=== PATIENT | male | born 1980 | race Caucasian/White ===

== ENCOUNTER 2019-05-31 10:33 | Emergency (ER) | payer BC, OTHER ==
[~2019-05-31 10:33] MED LIST: Iopamidol 370 76% 100 ML VIAL ONE
[2019-05-31 11:16] LABS: #Basophils 0.1 thou/uL (0.0-0.2); #Eosinphils 0.3 thou/uL (0.0-0.7); #Lymphocytes 1.4 thou/uL (1.20-3.40); #Monocytes 0.7 thou/uL (0.11-0.59); #Neutrophils 4.3 thou/uL (1.40-6.50); %Basophils 0.8 % (0.0-1.0); %Eosinophils 5.1 % (0.0-10.0); %Lymphocytes 20.8 % (21.0-51.0); %Monocytes 10.2 % (0.0-10.0); %Neutrophils 63.2 % (42.0-75.0); Hemoglobin 14.5 g/dL (14.0-18.0); Mean Corpuscular HGB CONC 32.5 g/dL (32.0-36.0); Mean Corpuscular Hemoglobin 31.7 pg (27.0-31.0); Mean Corpuscular Volume 97.6 fL (78.0-98.0); Mean Platelet Volume 8.1 fL (7.4-10.4); Platelet Count 184 thou/uL (130-400); RBC Distribution Width 11.8 % (11.5-14.5); Red Blood Cell (RBC) Count 4.57 mill/uL (4.70-6.10); White Blood Cell (WBC) Count 6.8 thou/uL (4.8-10.8)
[2019-05-31 11:41] LABS: ALT (SGPT) 22 U/L (8-55); AST (SGOT) 17 U/L (5-34); Albumin 4.4 g/dL (3.5-5.0); Alkaline Phosphatase 77 U/L (40-110); Anion Gap 14 mmol/L (10-20); BUN (Urea Nitrogen) 18 mg/dL (8.9-20.6); Bilirubin, Total 0.4 mg/dL (0.2-1.2); CK (CPK) 101 U/L (30-200); Calc. Creatinine Clearance 0 mL/min (70-130); Calcium 9.6 mg/dL (7.8-10.44); Carbon Dioxide 25 mmol/L (22-29); Chloride 105 mmol/L (98-107); Estimated GFR-MDRD 77; Globulin 2.8 g/dL (2.4-3.5); Glucose 106 mg/dL (70-105); Lipase 15 U/L (8-78); Potassium 4.9 mmol/L (3.5-5.1); Protein, Total 7.2 g/dL (6.0-8.3); Sodium 139 mmol/L (136-145)
[2019-05-31 11:49] LABS: Bacteria/HPF None Seen HPF (None Seen); Bilirubin Negative (Negative); Blood, Urine 1+ (Negative); Clarity Turbid (Clear); Glucose, Urine (Dipstick) Normal (Negative); Leukocyte 250 Leu/uL (Negative); Nitrite Negative (Negative); Protein, Urine (Dipstick) 30 mg/dL (Neg-Trace); RBC/HPF Greater than 50 HPF (0-3); Squamous Epithelial None Seen HPF (0-3); Urobilinogen Normal mg/dL (Less than 2); WBC/HPF 21-50 HPF (0-3)
--- NOTE | 2019-05-31 11:55 | RAD ---
CHEST 1 VIEW: Date: 05/31/2019 HISTORY: Near syncope. FINDINGS: Left ICD. Heart size normal. Lungs clear. No confluent pneumonia, overt edema, or pleural effusion. IMPRESSION: No significant acute intrathoracic disease. Left ICD. POS: RRE
--- NOTE | 2019-05-31 13:11 | CT ---
CT ABDOMEN AND PELVIS WITH IV CONTRAST 05/31/2019 CLINICAL INFORMATION: Nausea and vomiting with abdominal pain which radiates to the patient's back. COMPARISON: 03/09/2016 Technique: Multiple contiguous axial CT images are obtained through the abdomen and pelvis with IV contrast. Cor onal reformatted images are provided. FINDINGS: Lower Chest: Single left ventricular AICD lead is partially visualized. Minimal bibasilar atelectasis is present. Vessels: Abdominal aorta is normal in caliber without evidence of an aortic dissection. Abdomen: Portal vein:Patent Gallbladder: Within normal limits for CT imaging. Liver: within normal limits. Spleen: within normal limits. Pancreas: within normal limits. Adrenals: within normal limits. Kidneys: There is mild delayed nephrogram phase of enhancement left kidney compared to the right. Mil d left hydronephrosis and hydroureter is present with a 4 mm calculus seen in the distal left ureter. No right-sided hydronephrosis is present. Bowel: Colonic diverticulosis is present. Loops of small bowel are normal in caliber. Appendix: The appendix is visualized and normal in caliber. Peritoneum: No ascites or free air; no fluid collection. Mesentery and Retroperitoneum: No enlarged mesenteric or retroperitoneal lymph nodes. Abdominal Wall: within normal limits. Pelvis: Reproductive Organs: No pelvic masses. Pelvis within normal limits. Bladder: within normal limits. Bones: No suspicious lytic or sclerotic osseous lesions are identified. There is prominent atrophy of the paraspinous musculature bilaterally. This is a symmetric finding. IMPRESSION: Partially obstructing distal left ureteral calculus measuring 4 mm with mild left hydronephrosis and hydroureter Colonic diverticulosis Nonspecific but symmetric atrophy of the bilateral paraspinous musculature.
[2019-05-31 15:12] LABS: Troponin I 0.015 ng/mL (< 0.028)
--- NOTE | 2019-06-03 15:19 | EKG ---
Test Reason : Blood Pressure : / mmHG Vent. Rate : 061 BPM Atrial Rate : 061 BPM P-R Int : 218 ms QRS Dur : 106 ms QT Int : 442 ms P-R-T Axes : 013 -28 -06 degrees QTc Int : 444 ms Sinus rhythm with 1st degree A-V block Incomplete left bundle branch block Borderline ECG Confirmed by KRISTOPHER LUO ([id number]), magazine editor VICTROIANO TAVARES ([id number] on 06/03/2019 3:18:51 PM Referred By: Confirmed By:KRISTOPHER Granger
== END 2019-05-31 15:30 | disposition home or self-care (01) ==
LOC: ERS 10:33
DX: N13.2 Hydronephrosis with renal and ureteral calculous obstruction (principal); F17.220 Nicotine dependence, chewing tobacco, uncomplicated; Z79.899 Other long term (current) drug therapy
CPT/HCPCS: 36415; 71045; 74177; 80053; 81003; 81015; 82550; 83690; 84484; 85025; 87086; 87635; 93005; Q9967; U0002

== ENCOUNTER 2021-07-24 17:30 | Outpatient (CLI) | payer BC | END 2021-07-24 17:31 | disposition home or self-care (01) | LOC: SLEEPLAB 17:30 | PROVIDERS: ATTEND Family Medicine | DX: G47.33 Obstructive sleep apnea (adult) (pediatric) (principal); R53.83 Other fatigue; E66.9 Obesity, unspecified; G47.00 Insomnia, unspecified; I49.9 Cardiac arrhythmia, unspecified; R06.83 Snoring; Z68.33 Body mass index [BMI] 33.0-33.9, adult | CPT/HCPCS: 95800 ==

== ENCOUNTER 2021-09-24 19:00 | Outpatient (CLI) | payer BC | END 2021-09-24 19:01 | disposition home or self-care (01) | LOC: SLEEPLAB 19:00 | PROVIDERS: ATTEND Family Medicine | DX: G47.33 Obstructive sleep apnea (adult) (pediatric) (principal); R53.83 Other fatigue; E66.9 Obesity, unspecified; G47.00 Insomnia, unspecified | CPT/HCPCS: 95810 ==

== ENCOUNTER 2021-11-03 19:00 | Outpatient (CLI) | payer BC | END 2021-11-03 19:01 | disposition home or self-care (01) | LOC: SLEEPLAB 19:00 | PROVIDERS: ATTEND Family Medicine | DX: G47.33 Obstructive sleep apnea (adult) (pediatric) (principal); R53.83 Other fatigue; G47.00 Insomnia, unspecified; E66.9 Obesity, unspecified; I51.89 Other ill-defined heart diseases; Z68.33 Body mass index [BMI] 33.0-33.9, adult | CPT/HCPCS: 95811 ==

== ENCOUNTER 2022-01-31 21:53 | Inpatient (IN) | payer OTHER, BC ==
[~2022-01-31 21:53] MED LIST changes: -Iopamidol 370 76% 100 ML VIAL ONE; +Iopamidol-370 76% 500 ML 1 ML ONE
[2022-01-31] MEDS ORDERED: Tranexamic Acid 1,000 MG/10 ML VIAL ONE ×2 (21:56→22:00)
[2022-01-31] MEDS ORDERED: Boostrix 0.5 ML (Tdap) VIAL (>/=7 yrs of age) ONE (21:56)
[2022-01-31 22:13] LABS: Hemoglobin 13.8 g/dL (14.0-18.0); Mean Corpuscular HGB CONC 32.3 g/dL (32.0-36.0); Mean Corpuscular Hemoglobin 31.5 pg (27.0-31.0); Mean Corpuscular Volume 97.6 fl (78.0-98.0); Mean Platelet Volume 8.3 fL (7.4-10.4); Platelet Count 224 10x3/uL (130-400); Red Blood Cell (RBC) Count 4.38 mill/uL (4.70-6.10); White Blood Cell (WBC) Count 27.2 10x3/uL (4.8-10.8)
[2022-01-31] MEDS ORDERED: CEFAZOLIN 2 GM in Sodium Chloride 0.9% 100 ML IVPB SCH (22:15)
[2022-01-31 22:24] LABS: INR-International Normal Ratio 1.3; PTT 26.7 sec (22.9-36.1); Prothrombin Time 17.1 sec (12.0-14.7)
[2022-01-31 22:27] LABS: Actual Bicarbonate (HCO3a) 15.1 mEq/L (22-28); Analyzer IN Cardio ER; CO2 Tension 42.9 mmHg (35.0-45.0); Calcium, Ionized (arterial) 1.14 mmol/L (1.12-1.30); Carboxyhemoglobin (COHb) 0.3 gm% (0.0-3.0); Hemoglobin (Hb) 11.9 g/dL (14.0-18.0); Potassium - ABG Lab 3.49 mmol/L (3.70-5.30)
[2022-01-31] MEDS ORDERED: Calcium Chloride 1 GM/10 ML Abboject SYRINGE ONE ×2 (22:29→23:28)
[2022-01-31 22:32] LABS: Band 2 % (5-11); Lymphocytes 37 % (21-51); MDiff Complete? YES; Monocytes 3 % (0-10); Neutrophil 55 % (42-75); Platelet Morphology Comment Appears Adequate; RBC Morphology Normal; Reactive Lymphocytes 3 % (0-10)
[2022-01-31 22:33] LABS: ALT (SGPT) 76 U/L (8-55); AST (SGOT) 94 U/L (5-34); Albumin 3.4 g/dL (3.5-5.0); Alcohol 274 mg/dL (Less than 10); Alkaline Phosphatase 67 U/L (40-110); Anion Gap 20 mmol/L (10-20); BUN (Urea Nitrogen) 13 mg/dL (8.9-20.6); Bilirubin, Total 0.2 mg/dL (0.2-1.2); Calc. Creatinine Clearance 0 mL/min (70-130); Calcium 7.9 mg/dL (7.8-10.44); Carbon Dioxide 14 mmol/L (22-29); Chloride 108 mmol/L (98-107); Estimated GFR 67; Globulin 2.2 g/dL (2.4-3.5); Glucose 242 mg/dL (70-105); Lipase 63 U/L (8-78); Potassium 3.7 mmol/L (3.5-5.1); Protein, Total 5.6 g/dL (6.0-8.3); Sodium 138 mmol/L (136-145)
[2022-01-31] MEDS ORDERED: Ketamine 50 MG/ML (10ML VIAL) ONE (22:39)
[2022-01-31] MEDS ORDERED: Midazolam HCl 5 mg/5 ml Vial ONE (22:40)
[2022-01-31] MEDS ORDERED: Fentanyl 100 MCG/2 ML VIAL ONE (22:45)
[2022-01-31] MEDS ORDERED: Protamine Sulfate 50 MG/5 ML VIAL ONE (23:05)
[2022-01-31] MEDS ORDERED: Heparin 5,000 UNITS/ML VIAL ONE (23:05)
[2022-01-31] MEDS ORDERED: Norepinephrine 4 MG/4 ML VIAL ONE (23:28)
[2022-01-31] MEDS ORDERED: Rocuronium Bromide 10 MG/ML (10ML VIAL) ONE (23:28)
[2022-01-31] MEDS ORDERED: Sodium Bicarb 50 MEQ/50 ML Abboject 8.4% SYRINGE ONE (23:28)
[2022-01-31 23:36] LABS: pH, Arterial 7.16 (7.35-7.45)
[2022-01-31 23:37] LABS: ALV-art Gradient 317.375 mmHg (0-20); Puncture Site ALINE
[2022-01-31] MEDS ORDERED: HumaLOG 300 UNITS/3 ML VIAL SC PRN (23:39)
[2022-01-31] MEDS ORDERED: TETANUS, DIPHTHERIA TOX,ADULT (TDVAX) 0.5 ML VIAL IM ONE (23:39)
[2022-01-31] MEDS ORDERED: Dextrose 5% in Water 1,000 ML IV PRN (23:39)
[2022-01-31] MEDS ORDERED: Ondansetron PF 4 MG/2 ML Vial IVP PRN (23:39)
[2022-01-31] MEDS ORDERED: hydrALAZINE 20 MG/ML VIAL SLOW IVP PRN (23:39)
[2022-01-31] MEDS ORDERED: Dextrose 50% Abboject 50 ML SYRINGE SLOW IVP PRN (23:39)
[2022-01-31] MEDS ORDERED: FENTANYL 500 MCG/10 ML VIAL 2,000 MCG in Sodium Chloride 0.9% 60 ML IV PRN (23:43)
[2022-01-31] MEDS ORDERED: Dexmedetomidine In 0.9 % NaCl 100 ML IVPB SCH (23:45)
[2022-01-31] MEDS ORDERED: Sodium Chloride 0.9% 1,000 ML IV SCH (23:45)
[2022-01-31] MEDS ORDERED: Morphine CADD 100 ML IVPB SCH (23:45)
[2022-02-01] MEDS ORDERED: Dextrose 5% in Water 1,000 ML IV PRN (00:23)
[2022-02-01] MEDS ORDERED: Ondansetron PF 4 MG/2 ML Vial IVP PRN ×2 (00:23→21:46)
[2022-02-01] MEDS ORDERED: TETANUS, DIPHTHERIA TOX,ADULT (TDVAX) 0.5 ML VIAL IM ONE (00:23)
[2022-02-01] MEDS ORDERED: hydrALAZINE 20 MG/ML VIAL SLOW IVP PRN (00:23)
[2022-02-01] MEDS ORDERED: Dextrose 50% Abboject 50 ML SYRINGE SLOW IVP PRN (00:23)
[2022-02-01] MEDS ORDERED: FENTANYL 500 MCG/10 ML VIAL 2,000 MCG in Sodium Chloride 0.9% 60 ML IV PRN (00:25)
[2022-02-01] MEDS ORDERED: Dexmedetomidine In 0.9 % NaCl 100 ML IVPB SCH (00:30)
[2022-02-01] MEDS ORDERED: Morphine CADD 100 ML IVPB SCH (00:45)
[2022-02-01] MEDS ORDERED: Human Prothrombin Complx(PCC) 2,500 UNIT in Admixture Fee 1 EACH IV SCH (01:30)
[2022-02-01] MEDS ORDERED: NOREPINEPHRINE 8 MG/250 ML-D5W 250 ML ONE (01:47)
[2022-02-01 01:59] LABS: Actual Bicarbonate (HCO3a) 24.8 mEq/L (22-28); Base Excess (BEa) 0.9 mEq/L (-2.0 to +3.0); CO2 Tension 36.7 mmHg (35.0-45.0); Carboxyhemoglobin (COHb) 0.3 gm% (0.0-3.0); Hemoglobin (Hb) 9.8 g/dL (14.0-18.0); O2 Tension (PaO2), arterial 106.5 mmHg (80.0-100.0); pH, Arterial 7.45 (7.35-7.45)
[2022-02-01] MEDS ORDERED: NOREPINEPHRINE 8 MG/250 ML-D5W 250 ML IVPB SCH (02:00)
[2022-02-01 02:01] LABS: ALV-art Gradient 204.125 mmHg (0-20); Puncture Site Arterial Line
[2022-02-01 02:32] LABS: #Eosinphils 0.1 thou/uL (0.0-0.7); #Lymphocytes 0.9 thou/uL (1.20-3.40); #Monocytes 1.7 thou/uL (0.11-0.59); #Neutrophils 9.8 thou/uL (1.40-6.50); %Eosinophils 0.4 % (0.0-10.0); %Lymphocytes 7.5 % (21.0-51.0); %Monocytes 13.8 % (0.0-10.0); %Neutrophils 78.3 % (42.0-75.0); Hemoglobin 9.6 g/dL (14.0-18.0); Mean Corpuscular HGB CONC 35.7 g/dL (32.0-36.0); Mean Corpuscular Hemoglobin 31.5 pg (27.0-31.0); Mean Corpuscular Volume 88.1 fl (78.0-98.0); Mean Platelet Volume 8.3 fL (7.4-10.4); Platelet Count 121 10x3/uL (130-400); RBC Distribution Width 15.3 % (11.5-14.5); Red Blood Cell (RBC) Count 3.06 mill/uL (4.70-6.10); White Blood Cell (WBC) Count 12.6 10x3/uL (4.8-10.8)
[2022-02-01] MEDS ORDERED: Hydrocortisone Sod Succ/PF 100 mg/2 ml Vial IVP SCH ×2 (02:45→10:00)
[2022-02-01] MEDS: Sodium Chloride 0.9% 1,000 ML IV SCH ×2 (02:55→07:25)
[2022-02-01 03:41] LABS: ALT (SGPT) 32 U/L (8-55); AST (SGOT) 65 U/L (5-34); Albumin 3.1 g/dL (3.5-5.0); Alkaline Phosphatase 52 U/L (40-110); Bilirubin, Direct 0.4 mg/dL (0.1-0.3); Bilirubin, Total 1.2 mg/dL (0.2-1.2); Lactic Acid 7.5 mmol/L (0.5-2.2); Protein, Total 5.3 g/dL (6.0-8.3)
[2022-02-01 03:44] LABS: Anion Gap 21 mmol/L (10-20); BUN (Urea Nitrogen) 14 mg/dL (8.9-20.6); CK (CPK) 2138 U/L (30-200); Calc. Creatinine Clearance 165 mL/min (70-130); Calcium 10.9 mg/dL (7.8-10.44); Carbon Dioxide 20 mmol/L (22-29); Chloride 108 mmol/L (98-107); Estimated GFR 99; Glucose 109 mg/dL (70-105); Potassium 3.3 mmol/L (3.5-5.1); Sodium 146 mmol/L (136-145)
[2022-02-01] MEDS: Acetaminophen 500 MG TAB PO SCH ×4 (04:53→17:21)
[2022-02-01 05:01] LABS: Amphetamine Not Detected (NotDetected); Barbiturates Screen Not Detected (NotDetected); Benzodiazepine Screen Not Detected (NotDetected); Cocaine Metabolite Screen Not Detected (NotDetected); Methadone Not Detected (NotDetected); Methamphetamine Not Detected (NotDetected); Opiate Screen Detected (NotDetected); Oxycodone Screen Not Detected (NotDetected); Phencyclidine (PCP) Not Detected (NotDetected); THC/Cannabinoid Screen Not Detected (NotDetected); Tricyclic Screen Not Detected (NotDetected)
[2022-02-01 05:01] LABS: INR-International Normal Ratio 1.1; PTT 31.8 sec (22.9-36.1); Prothrombin Time 14.9 sec (12.0-14.7)
[2022-02-01 05:05] LABS: Bilirubin Negative (Negative); Blood, Urine 3+ (Negative); Clarity Clear (Clear); Glucose, Urine (Dipstick) Greater than 1000 mg/dL (Negative); Ketone, Urine Trace mg/dL (Negative); Leukocyte Negative Leu/uL (Negative); Nitrite Negative (Negative); Protein, Urine (Dipstick) Negative (Neg-Trace); RBC/HPF Greater than 50 HPF (0-3); Specific Gravity, Urine 1.035 (1.002-1.036); Squamous Epithelial 0-3 HPF (0-3); Urobilinogen Normal mg/dL (Less than 2); WBC/HPF 21-50 HPF (0-3); pH, Urine 5.5 (5.0-9.0)
[2022-02-01 05:06] LABS: Bacteria/HPF 1+ HPF (None Seen)
[2022-02-01 05:22] LABS: #Lymphocytes 0.4 thou/uL (1.20-3.40); #Monocytes 1.1 thou/uL (0.11-0.59); #Neutrophils 8.8 thou/uL (1.40-6.50); %Eosinophils 0.3 % (0.0-10.0); %Lymphocytes 3.8 % (21.0-51.0); %Monocytes 10.5 % (0.0-10.0); %Neutrophils 85.4 % (42.0-75.0); Hemoglobin 8.2 g/dL (14.0-18.0); Mean Corpuscular HGB CONC 35.9 g/dL (32.0-36.0); Mean Corpuscular Hemoglobin 31.5 pg (27.0-31.0); Mean Corpuscular Volume 87.7 fl (78.0-98.0); Mean Platelet Volume 8.4 fL (7.4-10.4); Platelet Count 106 10x3/uL (130-400); RBC Distribution Width 15.1 % (11.5-14.5); Red Blood Cell (RBC) Count 2.62 mill/uL (4.70-6.10); White Blood Cell (WBC) Count 10.3 10x3/uL (4.8-10.8)
[2022-02-01] MEDS ORDERED: Potassium Phosphate 30 MMOL in Sodium Chloride 0.9% 250 ML 250 ML IVPB SCH (07:15)
[2022-02-01 07:52] LABS: Actual Bicarbonate (HCO3a) 27.6 mEq/L (22-28); Base Excess (BEa) 2.9 mEq/L (-2.0 to +3.0); CO2 Tension 42.7 mmHg (35.0-45.0); Calcium, Ionized (arterial) 1.24 mmol/L (1.12-1.30); Carboxyhemoglobin (COHb) 0.7 gm% (0.0-3.0); Hemoglobin (Hb) 8.8 g/dL (14.0-18.0); O2 Tension (PaO2), arterial 70.4 mmHg (80.0-100.0); Potassium - ABG Lab 3.82 mmol/L (3.70-5.30); pH, Arterial 7.43 (7.35-7.45)
[2022-02-01] MEDS: Famotidine/PF 20 mg/2ml Vial SLOW IVP SCH ×2 (07:53→20:18)
[2022-02-01] MEDS: Folic Acid 1 MG TAB PO SCH (07:53)
[2022-02-01] MEDS: Thiamine 100 MG TAB PO SCH (07:53)
[2022-02-01 07:54] LABS: ALV-art Gradient 197.075 mmHg (0-20); Puncture Site Arterial Line
[2022-02-01] MEDS: Oxazepam 10 MG CAP PO SCH ×3 (07:55→20:18)
[2022-02-01] MEDS ORDERED: Acetaminophen 500 MG TAB PO SCH (08:00)
[2022-02-01 08:16] LABS: Lactic Acid 1.4 mmol/L (0.5-2.2)
[2022-02-01 08:27] LABS: Phosphorus 2.9 mg/dL (2.3-4.7)
[2022-02-01 08:28] LABS: Anion Gap 16 mmol/L (10-20); BUN (Urea Nitrogen) 16 mg/dL (8.9-20.6); CK (CPK) 3401 U/L (30-200); Calc. Creatinine Clearance 180 mL/min (70-130); Calcium 9.4 mg/dL (7.8-10.44); Carbon Dioxide 27 mmol/L (22-29); Chloride 112 mmol/L (98-107); Estimated GFR 109; Glucose 111 mg/dL (70-105); Magnesium 1.5 mg/dL (1.6-2.6); Potassium 3.9 mmol/L (3.5-5.1); Sodium 151 mmol/L (136-145)
[2022-02-01] MEDS ORDERED: Famotidine/PF 20 mg/2ml Vial SLOW IVP SCH (09:00)
[2022-02-01] MEDS ORDERED: Magnesium 2 GM/50 ML(in water) 4 GM in Premix Bag 1 BAG IVPB SCH (09:30)
[2022-02-01] MEDS ORDERED: traMADol HCl 50 MG TAB PO PRN ×2 (10:06→10:27)
[2022-02-01] MEDS ORDERED: traMADol HCl 50 MG TAB PO SCH ×3 (10:15→18:00)
[2022-02-01] MEDS ORDERED: Morphine 4 MG/ML VIAL SLOW IVP PRN (10:28)
[2022-02-01] MEDS: Morphine 4 MG/ML VIAL SLOW IVP PRN ×3 (13:25→20:16)
[2022-02-01] MEDS: Gabapentin 300 MG CAP PO SCH ×2 (13:25→20:18)
[2022-02-01] MEDS: Carvedilol 6.25 MG TAB PO SCH (16:30)
[2022-02-01 18:48] LABS: #Monocytes 1.2 thou/uL (0.11-0.59); %Basophils 0.1 % (0.0-1.0); %Eosinophils 0.1 % (0.0-10.0); %Lymphocytes 9.6 % (21.0-51.0); %Monocytes 11.7 % (0.0-10.0); %Neutrophils 78.4 % (42.0-75.0); Hemoglobin 8.2 g/dL (14.0-18.0); Mean Corpuscular HGB CONC 35.3 g/dL (32.0-36.0); Mean Corpuscular Hemoglobin 31.4 pg (27.0-31.0); Mean Corpuscular Volume 88.9 fl (78.0-98.0); Mean Platelet Volume 8.6 fL (7.4-10.4); Platelet Count 88 10x3/uL (130-400); RBC Distribution Width 15.3 % (11.5-14.5); White Blood Cell (WBC) Count 10.2 10x3/uL (4.8-10.8)
[2022-02-01 19:05] LABS: Troponin I 0.091 ng/mL (< 0.028)
[2022-02-01 19:06] LABS: Anion Gap 14 mmol/L (10-20); BUN (Urea Nitrogen) 17 mg/dL (8.9-20.6); Calc. Creatinine Clearance 160 mL/min (70-130); Calcium 8.6 mg/dL (7.8-10.44); Carbon Dioxide 30 mmol/L (22-29); Chloride 103 mmol/L (98-107); Estimated GFR 96; Glucose 152 mg/dL (70-105); Magnesium 1.8 mg/dL (1.6-2.6); Potassium 4.5 mmol/L (3.5-5.1); Sodium 142 mmol/L (136-145)
[2022-02-01] MEDS ORDERED: Magnesium 2 GM/50 ML(in water) 2 GM in Premix Bag 1 BAG IVPB SCH (19:45)
[2022-02-01] MEDS: Cyclobenzaprine 10 MG TAB PO PRN (19:46)
[2022-02-01] MEDS: Senokot S 8.6-50 MG TAB PO SCH (20:18)
[2022-02-01] MEDS ORDERED: Sacubitril 49 MG/Valsartan 51 MG TABLET PO SCH (21:00)
[2022-02-01] MEDS ORDERED: Digoxin 0.5 MG/2 ML AMP SLOW IVP SCH (21:30)
[2022-02-01] MEDS ORDERED: diphenhydrAMINE 25 MG CAP PO PRN (21:46)
[2022-02-01] MEDS ORDERED: Zolpidem Tartrate 5 MG TAB PO PRN (21:46)
[2022-02-01] MEDS ORDERED: diphenhydrAMINE 50 MG/ML VIAL IVP PRN (21:46)
[2022-02-01] MEDS ORDERED: Promethazine HCl 25 MG/ML VIAL IM PRN (21:46)
[2022-02-01] MEDS ORDERED: HYDROmorphone 10 mg/100 ml CADD IVPB PRN (21:46)
[2022-02-01] MEDS ORDERED: diphenhydrAMINE 50 MG/ML VIAL IM PRN (21:46)
[2022-02-01] MEDS ORDERED: Naloxone HCl 0.4 mg/ml Vial IV PRN (21:46)
[2022-02-01] MEDS ORDERED: Furosemide 20 MG/2 ML VIAL SLOW IVP SCH (22:00)
[2022-02-01] MEDS ORDERED: Communication Order-Pharmacy FS SCH (22:00)
[2022-02-02 04:11] LABS: #Lymphocytes 1.4 thou/uL (1.20-3.40); #Monocytes 1.1 thou/uL (0.11-0.59); #Neutrophils 7.1 thou/uL (1.40-6.50); %Basophils 0.3 % (0.0-1.0); %Eosinophils 0.3 % (0.0-10.0); %Lymphocytes 14.2 % (21.0-51.0); %Monocytes 11.7 % (0.0-10.0); %Neutrophils 73.6 % (42.0-75.0); Mean Corpuscular Hemoglobin 33.7 pg (27.0-31.0); Mean Corpuscular Volume 90.9 fl (78.0-98.0); Mean Platelet Volume 8.5 fL (7.4-10.4); Platelet Count 79 10x3/uL (130-400); RBC Distribution Width 15.1 % (11.5-14.5); Red Blood Cell (RBC) Count 2.37 mill/uL (4.70-6.10); White Blood Cell (WBC) Count 9.7 10x3/uL (4.8-10.8)
[2022-02-02 04:24] LABS: Lactic Acid 0.9 mmol/L (0.5-2.2)
[2022-02-02 04:29] LABS: Digoxin 2.21 ng/mL (0.8-2.0)
[2022-02-02] MEDS: Acetaminophen 500 MG TAB PO SCH ×5 (04:34→23:32)
[2022-02-02 04:36] LABS: Anion Gap 11 mmol/L (10-20); BUN (Urea Nitrogen) 21 mg/dL (8.9-20.6); Calc. Creatinine Clearance 141 mL/min (70-130); Calcium 8.9 mg/dL (7.8-10.44); Carbon Dioxide 32 mmol/L (22-29); Chloride 100 mmol/L (98-107); Estimated GFR 82; Glucose 134 mg/dL (70-105); Magnesium 2.5 mg/dL (1.6-2.6); Phosphorus 3.9 mg/dL (2.3-4.7); Potassium 4.4 mmol/L (3.5-5.1); Sodium 139 mmol/L (136-145)
[2022-02-02 04:46] LABS: CK (CPK) 5502 U/L (30-200)
[2022-02-02] MEDS ORDERED: Digoxin 0.5 MG/2 ML AMP SLOW IVP SCH (06:00)
[2022-02-02] MEDS: Levothyroxine Sodium 100 MCG TAB PO SCH (06:10)
[2022-02-02] MEDS ORDERED: Sodium Chloride 0.9% 500 ML IV SCH (07:00)
[2022-02-02] MEDS: Carvedilol 6.25 MG TAB PO SCH ×2 (08:10→17:18)
[2022-02-02] MEDS: Folic Acid 1 MG TAB PO SCH (08:13)
[2022-02-02] MEDS: Gabapentin 300 MG CAP PO SCH ×3 (08:13→22:22)
[2022-02-02] MEDS: Famotidine/PF 20 mg/2ml Vial SLOW IVP SCH ×2 (08:13→22:23)
[2022-02-02] MEDS: Tamsulosin HCl 0.4 MG CAP PO SCH (08:14)
[2022-02-02] MEDS: Polyethylene Glycol 3350 17 GM Packet PO SCH (08:14)
[2022-02-02] MEDS: Senokot S 8.6-50 MG TAB PO SCH ×2 (08:14→22:22)
[2022-02-02] MEDS: Thiamine 100 MG TAB PO SCH (08:14)
[2022-02-02] MEDS ORDERED: traMADol HCl 50 MG TAB PO PRN (08:51)
[2022-02-02] MEDS: traMADol HCl 50 MG TAB PO SCH ×3 (11:51→23:33)
[2022-02-02] MEDS ORDERED: traMADol HCl 50 MG TAB PO SCH (12:00)
[2022-02-02] MEDS ORDERED: Hydrocortisone Sod Succ/PF 100 mg/2 ml Vial IVP SCH (17:30)
[2022-02-02 18:06] LABS: #Eosinphils 0.1 thou/uL (0.0-0.7); #Lymphocytes 1.1 thou/uL (1.20-3.40); #Monocytes 0.9 thou/uL (0.11-0.59); #Neutrophils 6.5 thou/uL (1.40-6.50); %Basophils 0.2 % (0.0-1.0); %Eosinophils 0.7 % (0.0-10.0); %Neutrophils 76.1 % (42.0-75.0); Hemoglobin 6.8 g/dL (14.0-18.0); Mean Corpuscular HGB CONC 32.9 g/dL (32.0-36.0); Mean Corpuscular Hemoglobin 30.3 pg (27.0-31.0); Mean Corpuscular Volume 92.1 fl (78.0-98.0); Mean Platelet Volume 8.5 fL (7.4-10.4); Platelet Count 80 10x3/uL (130-400); RBC Distribution Width 14.9 % (11.5-14.5); Red Blood Cell (RBC) Count 2.23 mill/uL (4.70-6.10); White Blood Cell (WBC) Count 8.6 10x3/uL (4.8-10.8)
[2022-02-03] MEDS: Hydrocortisone Sod Succ/PF 100 mg/2 ml Vial IVP SCH ×3 (02:59→18:46)
[2022-02-03] MEDS ORDERED: Digoxin 0.5 MG/2 ML AMP SLOW IVP SCH (06:00)
[2022-02-03] MEDS: traMADol HCl 50 MG TAB PO SCH ×4 (06:05→23:27)
[2022-02-03] MEDS: Acetaminophen 500 MG TAB PO SCH ×4 (06:06→23:27)
[2022-02-03] MEDS: Levothyroxine Sodium 100 MCG TAB PO SCH (06:06)
[2022-02-03 06:37] LABS: #Lymphocytes 0.8 thou/uL (1.20-3.40); #Monocytes 0.8 thou/uL (0.11-0.59); #Neutrophils 6.9 thou/uL (1.40-6.50); %Basophils 0.2 % (0.0-1.0); %Eosinophils 0.2 % (0.0-10.0); %Lymphocytes 9.5 % (21.0-51.0); %Monocytes 9.7 % (0.0-10.0); %Neutrophils 80.4 % (42.0-75.0); Hemoglobin 7.4 g/dL (14.0-18.0); Mean Corpuscular HGB CONC 34.1 g/dL (32.0-36.0); Mean Corpuscular Hemoglobin 31.4 pg (27.0-31.0); Mean Platelet Volume 8.4 fL (7.4-10.4); Platelet Count 77 10x3/uL (130-400); RBC Distribution Width 14.3 % (11.5-14.5); Red Blood Cell (RBC) Count 2.34 mill/uL (4.70-6.10); White Blood Cell (WBC) Count 8.6 10x3/uL (4.8-10.8)
[2022-02-03 06:48] LABS: Lactic Acid 0.7 mmol/L (0.5-2.2)
[2022-02-03 06:55] LABS: Digoxin Less than 0.15 ng/mL (0.8-2.0)
[2022-02-03 06:57] LABS: Anion Gap 11 mmol/L (10-20); BUN (Urea Nitrogen) 13 mg/dL (8.9-20.6); CK (CPK) 3645 U/L (30-200); Calc. Creatinine Clearance 220 mL/min (70-130); Calcium 8.1 mg/dL (7.8-10.44); Carbon Dioxide 30 mmol/L (22-29); Chloride 102 mmol/L (98-107); Estimated GFR 114; Glucose 114 mg/dL (70-105); Magnesium 2.3 mg/dL (1.6-2.6); Phosphorus 2.1 mg/dL (2.3-4.7); Potassium 4.1 mmol/L (3.5-5.1); Sodium 139 mmol/L (136-145)
[2022-02-03] MEDS ORDERED: Fentanyl 250 MCG/5 ML VIAL ONE (07:05)
[2022-02-03] MEDS ORDERED: Neomycin-Polymyxin 1 ML AMP ONE ×2 (07:41)
[2022-02-03] MEDS ORDERED: Sodium Chloride 0.9% 100 ML ONE (07:42)
[2022-02-03] MEDS ORDERED: CEFAZOLIN 2 GM VIAL ONE (07:42)
[2022-02-03] MEDS ORDERED: Lidocaine 2% 6 ML SYR ONE (07:55)
[2022-02-03] MEDS ORDERED: Norepinephrine 4 MG/4 ML VIAL ONE (07:55)
[2022-02-03] MEDS ORDERED: Ondansetron PF 4 MG/2 ML Vial ONE (08:03)
[2022-02-03] MEDS ORDERED: NEOSTIGMINE 3 MG/3 ML SYR 3 MG/3 ML SYRINGE ONE (08:03)
[2022-02-03] MEDS ORDERED: Lidocaine 1% PF 5 ML VIAL ONE (08:03)
[2022-02-03] MEDS ORDERED: PROPOFOL 200 MG/20 ML VIAL ONE (08:03)
[2022-02-03] MEDS ORDERED: Glycopyrrolate 0.2 MG/ML 5 ML SYRINGE ONE (08:03)
[2022-02-03] MEDS ORDERED: Rocuronium Bromide 10 MG/ML (10ML VIAL) ONE (08:03)
[2022-02-03] MEDS ORDERED: Dexamethasone 20 MG/5 ML VIAL ONE (08:03)
[2022-02-03] MEDS ORDERED: Vancomycin 1 GM VIAL ONE (08:24)
[2022-02-03] MEDS: Folic Acid 1 MG TAB PO SCH ×2 (09:07→10:22)
[2022-02-03] MEDS: Famotidine/PF 20 mg/2ml Vial SLOW IVP SCH ×3 (09:07→21:21)
[2022-02-03] MEDS: Gabapentin 300 MG CAP PO SCH ×4 (09:07→21:21)
[2022-02-03] MEDS: Polyethylene Glycol 3350 17 GM Packet PO SCH (09:07)
[2022-02-03] MEDS: Senokot S 8.6-50 MG TAB PO SCH ×2 (09:07→21:22)
[2022-02-03] MEDS ORDERED: Promethazine HCl 25 MG/ML VIAL IVPB PRN (09:21)
[2022-02-03] MEDS ORDERED: Promethazine HCl 25 MG/ML VIAL IM PRN (09:21)
[2022-02-03] MEDS ORDERED: Ondansetron HCl/PF 4 MG/2 ML Vial IVP PRN (09:21)
[2022-02-03] MEDS ORDERED: Fentanyl 100 MCG/2 ML VIAL ONE (09:40)
[2022-02-03] MEDS: Tamsulosin HCl 0.4 MG CAP PO SCH (10:19)
[2022-02-03] MEDS: Thiamine 100 MG TAB PO SCH (10:19)
[2022-02-03] MEDS: Morphine 4 MG/ML VIAL SLOW IVP PRN ×3 (10:20→21:19)
[2022-02-03 17:28] LABS: Hemoglobin 8.3 g/dL (14.0-18.0)
[2022-02-04] MEDS: Hydrocortisone Sod Succ/PF 100 mg/2 ml Vial IVP SCH ×4 (02:33→19:27)
[2022-02-04] MEDS: traMADol HCl 50 MG TAB PO SCH ×3 (05:54→18:42)
[2022-02-04] MEDS: Acetaminophen 500 MG TAB PO SCH ×3 (05:55→18:41)
[2022-02-04] MEDS: Levothyroxine Sodium 100 MCG TAB PO SCH (05:55)
[2022-02-04] MEDS: Famotidine 20 MG TAB PO SCH ×2 (09:50→21:25)
[2022-02-04] MEDS: Gabapentin 300 MG CAP PO SCH ×3 (09:51→21:26)
[2022-02-04] MEDS: Tamsulosin HCl 0.4 MG CAP PO SCH (09:51)
[2022-02-04] MEDS: Thiamine 100 MG TAB PO SCH (09:51)
[2022-02-04] MEDS: Folic Acid 1 MG TAB PO SCH (09:51)
[2022-02-04] MEDS: Senokot S 8.6-50 MG TAB PO SCH ×2 (09:51→21:26)
[2022-02-04] MEDS: Polyethylene Glycol 3350 17 GM Packet PO SCH (09:52)
[2022-02-04] MEDS: Morphine 4 MG/ML VIAL SLOW IVP PRN ×2 (09:57→14:17)
[2022-02-04] MEDS: Carvedilol 6.25 MG TAB PO SCH (18:41)
[2022-02-04] MEDS: Bacitracin 1 PK TOP SCH (21:25)
[2022-02-04] MEDS: Apixaban 5 MG TAB PO SCH (21:25)
[2022-02-05] MEDS: traMADol HCl 50 MG TAB PO SCH ×5 (00:19→23:12)
[2022-02-05] MEDS: Acetaminophen 500 MG TAB PO SCH ×5 (00:19→23:11)
[2022-02-05] MEDS: Levothyroxine Sodium 100 MCG TAB PO SCH (05:28)
[2022-02-05 06:29] LABS: #Eosinphils 0.3 thou/uL (0.0-0.7); #Lymphocytes 1.9 thou/uL (1.20-3.40); #Neutrophils 5.2 thou/uL (1.40-6.50); %Basophils 0.4 % (0.0-1.0); %Eosinophils 3.1 % (0.0-10.0); %Monocytes 11.3 % (0.0-10.0); %Neutrophils 62.2 % (42.0-75.0); Hemoglobin 8.3 g/dL (14.0-18.0); Mean Corpuscular HGB CONC 32.8 g/dL (32.0-36.0); Mean Corpuscular Volume 94.5 fl (78.0-98.0); Mean Platelet Volume 7.7 fL (7.4-10.4); Platelet Count 168 10x3/uL (130-400); RBC Distribution Width 14.2 % (11.5-14.5); Red Blood Cell (RBC) Count 2.68 mill/uL (4.70-6.10); White Blood Cell (WBC) Count 8.4 10x3/uL (4.8-10.8)
[2022-02-05 06:52] LABS: Anion Gap 12 mmol/L (10-20); BUN (Urea Nitrogen) 16 mg/dL (8.9-20.6); CK (CPK) 1208 U/L (30-200); Calc. Creatinine Clearance 251 mL/min (70-130); Calcium 8.6 mg/dL (7.8-10.44); Carbon Dioxide 28 mmol/L (22-29); Chloride 100 mmol/L (98-107); Estimated GFR 117; Glucose 92 mg/dL (70-105); Magnesium 2.1 mg/dL (1.6-2.6); Phosphorus 2.7 mg/dL (2.3-4.7); Potassium 3.8 mmol/L (3.5-5.1); Sodium 136 mmol/L (136-145)
[2022-02-05] MEDS ORDERED: Potassium Phosphate 30 MMOL in Sodium Chloride 0.9% 250 ML 250 ML IVPB SCH (09:00)
[2022-02-05] MEDS ORDERED: Nitroglycerin 0.4 MG TAB (25 Tab Bottle) SL PRN (09:54)
[2022-02-05] MEDS: Gabapentin 300 MG CAP PO SCH ×3 (10:56→20:25)
[2022-02-05] MEDS: Tamsulosin HCl 0.4 MG CAP PO SCH (10:56)
[2022-02-05] MEDS: Polyethylene Glycol 3350 17 GM Packet PO SCH (10:56)
[2022-02-05] MEDS: Folic Acid 1 MG TAB PO SCH (10:57)
[2022-02-05] MEDS: Famotidine 20 MG TAB PO SCH ×2 (10:57→20:25)
[2022-02-05] MEDS: Bacitracin 1 PK TOP SCH ×2 (10:57→20:25)
[2022-02-05] MEDS: Apixaban 5 MG TAB PO SCH ×2 (10:58→20:25)
[2022-02-05] MEDS: Thiamine 100 MG TAB PO SCH (10:58)
[2022-02-05] MEDS: Carvedilol 6.25 MG TAB PO SCH ×2 (11:09→18:57)
[2022-02-05] MEDS: Senokot S 8.6-50 MG TAB PO SCH (20:22)
[2022-02-05] MEDS: Sacubitril 49 MG/Valsartan 51 MG TABLET PO SCH (20:25)
[2022-02-06 00:39] LABS: Bacteria/HPF None Seen HPF (None Seen); Bilirubin Negative (Negative); Blood, Urine Negative (Negative); CAUTI Indications for Culture Dysuria,urgency,freq; Clarity Clear (Clear); Glucose, Urine (Dipstick) 30 mg/dL (Negative); Ketone, Urine Negative (Negative); Leukocyte Negative Leu/uL (Negative); Nitrite Negative (Negative); Protein, Urine (Dipstick) Negative (Neg-Trace); RBC/HPF 0-3 HPF (0-3); Specific Gravity, Urine 1.021 (1.002-1.036); Squamous Epithelial None Seen HPF (0-3); Urobilinogen 6 mg/dL (Less than 2); WBC/HPF 0-3 HPF (0-3)
[2022-02-06 00:43] LABS: Urine Culture Reflex No No
[2022-02-06] MEDS: traMADol HCl 50 MG TAB PO SCH ×4 (05:23→23:03)
[2022-02-06] MEDS: Levothyroxine Sodium 100 MCG TAB PO SCH (05:23)
[2022-02-06] MEDS: Acetaminophen 500 MG TAB PO SCH ×4 (05:24→23:02)
[2022-02-06] MEDS: Aspirin 81 mg Enteric Coated Tablet PO SCH (10:53)
[2022-02-06] MEDS: Folic Acid 1 MG TAB PO SCH (10:53)
[2022-02-06] MEDS: Bacitracin 1 PK TOP SCH ×2 (10:53→20:08)
[2022-02-06] MEDS: Thiamine 100 MG TAB PO SCH (10:53)
[2022-02-06] MEDS: Empagliflozin 10 MG TAB PO SCH (10:54)
[2022-02-06] MEDS: Apixaban 5 MG TAB PO SCH ×2 (10:54→20:07)
[2022-02-06] MEDS: Senokot S 8.6-50 MG TAB PO SCH ×2 (10:54→20:08)
[2022-02-06] MEDS: Carvedilol 6.25 MG TAB PO SCH ×2 (10:54→18:34)
[2022-02-06] MEDS: Tamsulosin HCl 0.4 MG CAP PO SCH (10:54)
[2022-02-06] MEDS: Famotidine 20 MG TAB PO SCH ×2 (10:55→20:07)
[2022-02-06] MEDS: Bisacodyl 10 MG SUPP PR SCH (10:55)
[2022-02-06] MEDS: Gabapentin 300 MG CAP PO SCH ×3 (10:55→20:07)
[2022-02-06] MEDS: Sacubitril 49 MG/Valsartan 51 MG TABLET PO SCH ×2 (10:56→20:07)
[2022-02-06] MEDS: Polyethylene Glycol 3350 17 GM Packet PO SCH (10:56)
[2022-02-06] MEDS: Spironolactone 25 MG TAB PO SCH (10:56)
[2022-02-07] MEDS: traMADol HCl 50 MG TAB PO SCH ×4 (05:45→23:38)
[2022-02-07] MEDS: Acetaminophen 500 MG TAB PO SCH ×4 (05:46→23:38)
[2022-02-07] MEDS: Levothyroxine Sodium 100 MCG TAB PO SCH (05:46)
[2022-02-07] MEDS: Carvedilol 6.25 MG TAB PO SCH ×2 (08:50→17:27)
[2022-02-07] MEDS: Empagliflozin 10 MG TAB PO SCH (08:53)
[2022-02-07] MEDS: Sacubitril 49 MG/Valsartan 51 MG TABLET PO SCH ×2 (08:53→20:13)
[2022-02-07] MEDS: Folic Acid 1 MG TAB PO SCH (08:53)
[2022-02-07] MEDS: Tamsulosin HCl 0.4 MG CAP PO SCH (08:53)
[2022-02-07] MEDS: Bisacodyl 10 MG SUPP PR SCH (08:54)
[2022-02-07] MEDS: Gabapentin 300 MG CAP PO SCH ×3 (08:54→20:10)
[2022-02-07] MEDS: Bacitracin 1 PK TOP SCH ×2 (08:54→20:12)
[2022-02-07] MEDS: Thiamine 100 MG TAB PO SCH (08:54)
[2022-02-07] MEDS: Famotidine 20 MG TAB PO SCH ×2 (08:54→20:12)
[2022-02-07] MEDS: Apixaban 5 MG TAB PO SCH ×2 (08:54→20:11)
[2022-02-07] MEDS: Aspirin 81 mg Enteric Coated Tablet PO SCH (08:54)
[2022-02-07] MEDS: Spironolactone 25 MG TAB PO SCH (08:54)
[2022-02-07] MEDS: Polyethylene Glycol 3350 17 GM Packet PO SCH (08:55)
[2022-02-07] MEDS: Senokot S 8.6-50 MG TAB PO SCH ×2 (08:55→20:10)
[2022-02-07] MEDS: Cyclobenzaprine 10 MG TAB PO PRN (14:41)
[2022-02-08] MEDS: Levothyroxine Sodium 100 MCG TAB PO SCH (06:46)
[2022-02-08] MEDS: Acetaminophen 500 MG TAB PO SCH ×4 (06:46→23:48)
[2022-02-08] MEDS: traMADol HCl 50 MG TAB PO SCH ×4 (06:46→23:48)
[2022-02-08] MEDS: Senokot S 8.6-50 MG TAB PO SCH ×2 (08:24→20:03)
[2022-02-08] MEDS: Carvedilol 6.25 MG TAB PO SCH ×2 (08:24→16:40)
[2022-02-08] MEDS: Polyethylene Glycol 3350 17 GM Packet PO SCH (08:24)
[2022-02-08] MEDS: Famotidine 20 MG TAB PO SCH ×2 (08:25→20:03)
[2022-02-08] MEDS: Sacubitril 49 MG/Valsartan 51 MG TABLET PO SCH ×2 (08:25→20:02)
[2022-02-08] MEDS: Gabapentin 300 MG CAP PO SCH ×3 (08:25→20:03)
[2022-02-08] MEDS: Bacitracin 1 PK TOP SCH ×2 (08:25→20:03)
[2022-02-08] MEDS: Empagliflozin 10 MG TAB PO SCH (08:25)
[2022-02-08] MEDS: Folic Acid 1 MG TAB PO SCH (08:25)
[2022-02-08] MEDS: Thiamine 100 MG TAB PO SCH (08:25)
[2022-02-08] MEDS: Spironolactone 25 MG TAB PO SCH (08:25)
[2022-02-08] MEDS: Aspirin 81 mg Enteric Coated Tablet PO SCH (08:25)
[2022-02-08] MEDS: Apixaban 5 MG TAB PO SCH ×2 (08:25→20:03)
[2022-02-08] MEDS: Bisacodyl 10 MG SUPP PR SCH (08:25)
[2022-02-08] MEDS: Tamsulosin HCl 0.4 MG CAP PO SCH (08:25)
[2022-02-08] MEDS: Morphine 4 MG/ML VIAL SLOW IVP PRN (08:44)
[2022-02-09] MEDS: Levothyroxine Sodium 100 MCG TAB PO SCH (06:00)
[2022-02-09] MEDS: traMADol HCl 50 MG TAB PO SCH ×4 (06:00→23:40)
[2022-02-09] MEDS: Acetaminophen 500 MG TAB PO SCH ×4 (06:02→23:40)
[2022-02-09 08:58] LABS: Mean Corpuscular HGB CONC 33.7 g/dL (32.0-36.0); Mean Corpuscular Hemoglobin 31.7 pg (27.0-31.0); Mean Platelet Volume 6.7 fL (7.4-10.4); Platelet Count 388 10x3/uL (130-400); RBC Distribution Width 14.1 % (11.5-14.5); Red Blood Cell (RBC) Count 2.85 mill/uL (4.70-6.10)
[2022-02-09] MEDS: Carvedilol 6.25 MG TAB PO SCH ×2 (10:12→17:25)
[2022-02-09] MEDS: Aspirin 81 mg Enteric Coated Tablet PO SCH (10:12)
[2022-02-09] MEDS: Spironolactone 25 MG TAB PO SCH (10:13)
[2022-02-09] MEDS: Apixaban 5 MG TAB PO SCH ×2 (10:13→20:17)
[2022-02-09] MEDS: Senokot S 8.6-50 MG TAB PO SCH ×2 (10:13→20:18)
[2022-02-09] MEDS: Thiamine 100 MG TAB PO SCH (10:13)
[2022-02-09] MEDS: Famotidine 20 MG TAB PO SCH ×2 (10:13→20:17)
[2022-02-09] MEDS: Tamsulosin HCl 0.4 MG CAP PO SCH (10:14)
[2022-02-09] MEDS: Gabapentin 300 MG CAP PO SCH ×3 (10:14→20:16)
[2022-02-09] MEDS: Folic Acid 1 MG TAB PO SCH (10:14)
[2022-02-09] MEDS: Empagliflozin 10 MG TAB PO SCH (10:15)
[2022-02-09] MEDS: Sacubitril 49 MG/Valsartan 51 MG TABLET PO SCH ×2 (10:15→20:18)
[2022-02-09] MEDS: Bacitracin 1 PK TOP SCH ×2 (10:15→20:17)
[2022-02-09] MEDS: Bisacodyl 10 MG SUPP PR SCH (10:24)
[2022-02-09] MEDS: Polyethylene Glycol 3350 17 GM Packet PO SCH (10:24)
[2022-02-09] MEDS ORDERED: Ipratropium Bromide 2.5 ml Neb ONE (19:31)
[2022-02-10] MEDS: traMADol HCl 50 MG TAB PO SCH ×4 (05:45→23:34)
[2022-02-10] MEDS: Levothyroxine Sodium 100 MCG TAB PO SCH (05:45)
[2022-02-10] MEDS: Acetaminophen 500 MG TAB PO SCH ×4 (05:46→23:36)
[2022-02-10] MEDS: Folic Acid 1 MG TAB PO SCH (08:42)
[2022-02-10] MEDS: Famotidine 20 MG TAB PO SCH ×2 (08:42→21:04)
[2022-02-10] MEDS: Aspirin 81 mg Enteric Coated Tablet PO SCH (08:42)
[2022-02-10] MEDS: Sacubitril 49 MG/Valsartan 51 MG TABLET PO SCH ×2 (08:42→21:06)
[2022-02-10] MEDS: Bacitracin 1 PK TOP SCH ×2 (08:42→21:04)
[2022-02-10] MEDS: Apixaban 5 MG TAB PO SCH ×2 (08:42→21:04)
[2022-02-10] MEDS: Carvedilol 6.25 MG TAB PO SCH ×2 (08:42→17:42)
[2022-02-10] MEDS: Spironolactone 25 MG TAB PO SCH (08:42)
[2022-02-10] MEDS: Tamsulosin HCl 0.4 MG CAP PO SCH (08:42)
[2022-02-10] MEDS: Thiamine 100 MG TAB PO SCH (08:42)
[2022-02-10] MEDS: Gabapentin 300 MG CAP PO SCH ×3 (08:43→21:05)
[2022-02-10] MEDS: Empagliflozin 10 MG TAB PO SCH (08:43)
[2022-02-10] MEDS: Polyethylene Glycol 3350 17 GM Packet PO SCH (08:47)
[2022-02-10] MEDS: Senokot S 8.6-50 MG TAB PO SCH ×2 (08:47→21:07)
[2022-02-10] MEDS: Bisacodyl 10 MG SUPP PR SCH (08:47)
[2022-02-10] MEDS: Cyclobenzaprine 10 MG TAB PO PRN (21:07)
[2022-02-11] MEDS: Levothyroxine Sodium 100 MCG TAB PO SCH (06:02)
[2022-02-11] MEDS: traMADol HCl 50 MG TAB PO SCH ×4 (06:02→22:43)
[2022-02-11] MEDS: Acetaminophen 500 MG TAB PO SCH ×4 (06:03→22:44)
[2022-02-11] MEDS: Tamsulosin HCl 0.4 MG CAP PO SCH (09:33)
[2022-02-11] MEDS: Thiamine 100 MG TAB PO SCH (09:33)
[2022-02-11] MEDS: Spironolactone 25 MG TAB PO SCH (09:33)
[2022-02-11] MEDS: Famotidine 20 MG TAB PO SCH ×2 (09:33→20:31)
[2022-02-11] MEDS: Bacitracin 1 PK TOP SCH ×2 (09:33→20:24)
[2022-02-11] MEDS: Apixaban 5 MG TAB PO SCH ×2 (09:33→20:33)
[2022-02-11] MEDS: Folic Acid 1 MG TAB PO SCH (09:33)
[2022-02-11] MEDS: Empagliflozin 10 MG TAB PO SCH (09:33)
[2022-02-11] MEDS: Aspirin 81 mg Enteric Coated Tablet PO SCH (09:33)
[2022-02-11] MEDS: Carvedilol 6.25 MG TAB PO SCH ×2 (09:33→18:17)
[2022-02-11] MEDS: Sacubitril 49 MG/Valsartan 51 MG TABLET PO SCH ×2 (09:33→20:31)
[2022-02-11] MEDS: Gabapentin 300 MG CAP PO SCH ×3 (09:33→20:32)
[2022-02-11] MEDS: Senokot S 8.6-50 MG TAB PO SCH ×2 (09:38→20:33)
[2022-02-11] MEDS: Polyethylene Glycol 3350 17 GM Packet PO SCH (09:38)
[2022-02-11] MEDS: Bisacodyl 10 MG SUPP PR SCH (09:39)
[2022-02-11] MEDS: Morphine 4 MG/ML VIAL SLOW IVP PRN (11:07)
[2022-02-11] MEDS: Cyclobenzaprine 10 MG TAB PO PRN ×2 (11:10→22:45)
[2022-02-11] MEDS ORDERED: CEFAZOLIN 2 GM in Sodium Chloride 0.9% 100 ML IVPB SCH (13:00)
[2022-02-12] MEDS: traMADol HCl 50 MG TAB PO SCH ×3 (05:22→18:18)
[2022-02-12] MEDS: Acetaminophen 500 MG TAB PO SCH ×3 (05:22→18:20)
[2022-02-12] MEDS: Levothyroxine Sodium 100 MCG TAB PO SCH (05:23)
[2022-02-12] MEDS: Empagliflozin 10 MG TAB PO SCH (09:08)
[2022-02-12] MEDS: Sacubitril 49 MG/Valsartan 51 MG TABLET PO SCH ×2 (09:08→21:54)
[2022-02-12] MEDS: Tamsulosin HCl 0.4 MG CAP PO SCH (09:08)
[2022-02-12] MEDS: Carvedilol 6.25 MG TAB PO SCH ×2 (09:08→17:29)
[2022-02-12] MEDS: Famotidine 20 MG TAB PO SCH ×2 (09:08→21:54)
[2022-02-12] MEDS: Spironolactone 25 MG TAB PO SCH (09:09)
[2022-02-12] MEDS: Folic Acid 1 MG TAB PO SCH (09:09)
[2022-02-12] MEDS: Bacitracin 1 PK TOP SCH ×2 (09:09→21:54)
[2022-02-12] MEDS: Gabapentin 300 MG CAP PO SCH ×3 (09:09→21:54)
[2022-02-12] MEDS: Thiamine 100 MG TAB PO SCH (09:09)
[2022-02-12] MEDS: Bisacodyl 10 MG SUPP PR SCH (09:14)
[2022-02-12] MEDS: Polyethylene Glycol 3350 17 GM Packet PO SCH (09:16)
[2022-02-12] MEDS: Senokot S 8.6-50 MG TAB PO SCH ×2 (09:16→22:49)
[2022-02-12] MEDS: Cyclobenzaprine 10 MG TAB PO PRN (21:54)
[2022-02-13] MEDS: Acetaminophen 500 MG TAB PO SCH ×5 (00:30→23:48)
[2022-02-13] MEDS: traMADol HCl 50 MG TAB PO SCH ×5 (00:30→23:48)
[2022-02-13] MEDS: Levothyroxine Sodium 100 MCG TAB PO SCH (05:34)
[2022-02-13] MEDS: Carvedilol 6.25 MG TAB PO SCH ×2 (08:16→16:31)
[2022-02-13] MEDS: Polyethylene Glycol 3350 17 GM Packet PO SCH (08:40)
[2022-02-13] MEDS: Bisacodyl 10 MG SUPP PR SCH (08:40)
[2022-02-13] MEDS: Senokot S 8.6-50 MG TAB PO SCH ×2 (08:41→21:01)
[2022-02-13] MEDS: Gabapentin 300 MG CAP PO SCH ×3 (08:49→20:55)
[2022-02-13] MEDS: Empagliflozin 10 MG TAB PO SCH (08:49)
[2022-02-13] MEDS: Spironolactone 25 MG TAB PO SCH (08:49)
[2022-02-13] MEDS: Folic Acid 1 MG TAB PO SCH (08:49)
[2022-02-13] MEDS: Bacitracin 1 PK TOP SCH ×2 (08:49→20:55)
[2022-02-13] MEDS: Thiamine 100 MG TAB PO SCH (08:49)
[2022-02-13] MEDS: Famotidine 20 MG TAB PO SCH ×2 (08:49→20:55)
[2022-02-13] MEDS: Sacubitril 49 MG/Valsartan 51 MG TABLET PO SCH ×2 (08:49→20:55)
[2022-02-13] MEDS: Tamsulosin HCl 0.4 MG CAP PO SCH (08:49)
[2022-02-13] MEDS: Morphine 4 MG/ML VIAL SLOW IVP PRN (11:20)
[2022-02-13] MEDS: Cyclobenzaprine 10 MG TAB PO PRN (23:47)
[2022-02-14] MEDS: traMADol HCl 50 MG TAB PO SCH ×4 (05:47→23:52)
[2022-02-14] MEDS: Levothyroxine Sodium 100 MCG TAB PO SCH (05:47)
[2022-02-14] MEDS: Acetaminophen 500 MG TAB PO SCH ×4 (05:48→23:52)
[2022-02-14] MEDS: Carvedilol 6.25 MG TAB PO SCH ×2 (08:52→16:29)
[2022-02-14] MEDS: Bacitracin 1 PK TOP SCH ×2 (10:05→20:11)
[2022-02-14] MEDS: Famotidine 20 MG TAB PO SCH ×2 (10:05→20:11)
[2022-02-14] MEDS: Gabapentin 300 MG CAP PO SCH ×3 (10:05→20:10)
[2022-02-14] MEDS: Folic Acid 1 MG TAB PO SCH (10:05)
[2022-02-14] MEDS: Polyethylene Glycol 3350 17 GM Packet PO SCH (10:05)
[2022-02-14] MEDS: Empagliflozin 10 MG TAB PO SCH (10:05)
[2022-02-14] MEDS: Bisacodyl 10 MG SUPP PR SCH (10:05)
[2022-02-14] MEDS: Senokot S 8.6-50 MG TAB PO SCH ×2 (10:05→20:12)
[2022-02-14] MEDS: Sacubitril 49 MG/Valsartan 51 MG TABLET PO SCH ×2 (10:05→20:12)
[2022-02-14] MEDS: Spironolactone 25 MG TAB PO SCH (10:06)
[2022-02-14] MEDS: Thiamine 100 MG TAB PO SCH (10:06)
[2022-02-14] MEDS: Tamsulosin HCl 0.4 MG CAP PO SCH (10:06)
[2022-02-14] MEDS ORDERED: Fentanyl 250 MCG/5 ML VIAL ONE (10:56)
[2022-02-14] MEDS ORDERED: PROPOFOL 200 MG/20 ML VIAL ONE (11:04)
[2022-02-14] MEDS ORDERED: Rocuronium Bromide 10 MG/ML (10ML VIAL) ONE (11:04)
[2022-02-14] MEDS ORDERED: ePHEDrine 50 MG/ML VIAL ONE (11:04)
[2022-02-14] MEDS ORDERED: Ondansetron PF 4 MG/2 ML Vial ONE (11:04)
[2022-02-14] MEDS: CEFAZOLIN 2 GM in Sodium Chloride 0.9% 100 ML IVPB SCH ×2 (15:39→20:11)
[2022-02-14] MEDS: Cyclobenzaprine 10 MG TAB PO PRN (16:29)
[2022-02-14] MEDS: Morphine 4 MG/ML VIAL SLOW IVP PRN (20:11)
[2022-02-15] MEDS: Acetaminophen 500 MG TAB PO SCH ×3 (05:37→17:56)
[2022-02-15] MEDS: traMADol HCl 50 MG TAB PO SCH ×3 (05:37→17:56)
[2022-02-15] MEDS: Levothyroxine Sodium 100 MCG TAB PO SCH (05:37)
[2022-02-15] MEDS: Tamsulosin HCl 0.4 MG CAP PO SCH (08:46)
[2022-02-15] MEDS: Sacubitril 49 MG/Valsartan 51 MG TABLET PO SCH ×2 (08:46→20:47)
[2022-02-15] MEDS: Famotidine 20 MG TAB PO SCH ×2 (08:47→20:47)
[2022-02-15] MEDS: Gabapentin 300 MG CAP PO SCH ×3 (08:47→20:48)
[2022-02-15] MEDS: Thiamine 100 MG TAB PO SCH (08:47)
[2022-02-15] MEDS: Folic Acid 1 MG TAB PO SCH (08:47)
[2022-02-15] MEDS: Carvedilol 6.25 MG TAB PO SCH ×2 (08:47→16:27)
[2022-02-15] MEDS: Spironolactone 25 MG TAB PO SCH (08:47)
[2022-02-15] MEDS: Empagliflozin 10 MG TAB PO SCH (08:48)
[2022-02-15] MEDS: Cyclobenzaprine 10 MG TAB PO PRN (08:51)
[2022-02-15] MEDS: Senokot S 8.6-50 MG TAB PO SCH ×2 (09:42→20:48)
[2022-02-15] MEDS: Bisacodyl 10 MG SUPP PR SCH (09:42)
[2022-02-15] MEDS: Bacitracin 1 PK TOP SCH ×2 (09:42→20:48)
[2022-02-15] MEDS: Polyethylene Glycol 3350 17 GM Packet PO SCH (09:42)
[2022-02-16] MEDS: traMADol HCl 50 MG TAB PO SCH ×4 (00:04→17:14)
[2022-02-16] MEDS: Acetaminophen 500 MG TAB PO SCH ×4 (00:04→17:14)
[2022-02-16] MEDS: Levothyroxine Sodium 100 MCG TAB PO SCH (05:27)
[2022-02-16] MEDS: Folic Acid 1 MG TAB PO SCH (08:04)
[2022-02-16] MEDS: Sacubitril 49 MG/Valsartan 51 MG TABLET PO SCH ×2 (08:04→20:26)
[2022-02-16] MEDS: Gabapentin 300 MG CAP PO SCH ×3 (08:04→20:26)
[2022-02-16] MEDS: Tamsulosin HCl 0.4 MG CAP PO SCH (08:04)
[2022-02-16] MEDS: Spironolactone 25 MG TAB PO SCH (08:05)
[2022-02-16] MEDS: Senokot S 8.6-50 MG TAB PO SCH ×2 (08:05→20:27)
[2022-02-16] MEDS: Bacitracin 1 PK TOP SCH ×2 (08:05→20:27)
[2022-02-16] MEDS: Famotidine 20 MG TAB PO SCH ×2 (08:05→20:27)
[2022-02-16] MEDS: Carvedilol 6.25 MG TAB PO SCH ×2 (08:05→17:13)
[2022-02-16] MEDS: Bisacodyl 10 MG SUPP PR SCH (08:05)
[2022-02-16] MEDS: Empagliflozin 10 MG TAB PO SCH (08:05)
[2022-02-16] MEDS: Polyethylene Glycol 3350 17 GM Packet PO SCH (08:05)
[2022-02-16] MEDS: Thiamine 100 MG TAB PO SCH (08:05)
[2022-02-17] MEDS: Acetaminophen 500 MG TAB PO SCH ×3 (00:19→13:51)
[2022-02-17] MEDS: traMADol HCl 50 MG TAB PO SCH ×3 (00:20→13:53)
[2022-02-17] MEDS: Levothyroxine Sodium 100 MCG TAB PO SCH (05:05)
[2022-02-17] MEDS: Morphine 4 MG/ML VIAL SLOW IVP PRN (08:56)
[2022-02-17] MEDS: Tamsulosin HCl 0.4 MG CAP PO SCH (09:00)
[2022-02-17] MEDS: Carvedilol 6.25 MG TAB PO SCH (09:00)
[2022-02-17] MEDS: Sacubitril 49 MG/Valsartan 51 MG TABLET PO SCH (09:00)
[2022-02-17] MEDS: Gabapentin 300 MG CAP PO SCH ×2 (09:01→13:53)
[2022-02-17] MEDS: Folic Acid 1 MG TAB PO SCH (09:01)
[2022-02-17] MEDS: Famotidine 20 MG TAB PO SCH (09:01)
[2022-02-17] MEDS: Thiamine 100 MG TAB PO SCH (09:01)
[2022-02-17] MEDS: Spironolactone 25 MG TAB PO SCH (09:01)
[2022-02-17] MEDS: Bisacodyl 10 MG SUPP PR SCH (09:11)
[2022-02-17] MEDS: Empagliflozin 10 MG TAB PO SCH (09:11)
[2022-02-17] MEDS: Bacitracin 1 PK TOP SCH (09:11)
[2022-02-17] MEDS: Polyethylene Glycol 3350 17 GM Packet PO SCH (09:12)
[2022-02-17] MEDS: Senokot S 8.6-50 MG TAB PO SCH (09:12)
[2022-02-17 12:05] VITALS: BP 99/64; TEMP 98.7
[2022-02-17 12:36] VITALS: BMI 33.4
== END 2022-02-17 16:04 | DRG 957 ==
LOC: ERS 21:53 → CCU 02-01 01:23 → SURG A 02-02 15:44
PROVIDERS: ADMIT Surgery; ATTEND Surgery
PROC: 5A1935Z Respiratory Ventilation, Less than 24 Consecutive Hours (ICD-10-PCS; 2022-01-31)
PROC: 05HY33Z Insertion of Infusion Device into Upper Vein, Percutaneous Approach (ICD-10-PCS; 2022-01-31)
PROC: 0SSDXZZ Reposition Left Knee Joint, External Approach (ICD-10-PCS; 2022-01-31)
PROC: 3E033XZ Introduction of Vasopressor into Peripheral Vein, Percutaneous Approach (ICD-10-PCS; 2022-01-31)
PROC: 30233K1 Transfusion of Nonautologous Frozen Plasma into Peripheral Vein, Percutaneous Approach (ICD-10-PCS; 2022-01-31)
PROC: 30233N1 Transfusion of Nonautologous Red Blood Cells into Peripheral Vein, Percutaneous Approach (ICD-10-PCS; 2022-01-31)
PROC: 30233M1 Transfusion of Nonautologous Plasma Cryoprecipitate into Peripheral Vein, Percutaneous Approach (ICD-10-PCS; 2022-01-31)
PROC: 0Y6D0Z3 Detachment at Left Upper Leg, Low, Open Approach (ICD-10-PCS; principal; 2022-02-01)
PROC: 0KQR0ZZ Repair Left Upper Leg Muscle, Open Approach (ICD-10-PCS; 2022-02-03)
PROC: 0JBL0ZZ Excision of Right Upper Leg Subcutaneous Tissue and Fascia, Open Approach (ICD-10-PCS; 2022-02-17)
DX: S82.252B Displaced comminuted fracture of shaft of left tibia, initial encounter for open fracture type I or II (principal); Z20.822 Contact with and (suspected) exposure to COVID-19; J96.00 Acute respiratory failure, unspecified whether with hypoxia or hypercapnia; S27.321A Contusion of lung, unilateral, initial encounter; R57.8 Other shock; S85.092A Other specified injury of popliteal artery, left leg, initial encounter; S78.112A Complete traumatic amputation at level between left hip and knee, initial encounter; S06.0XAA Concussion with loss of consciousness status unknown, initial encounter; S82.891B Other fracture of right lower leg, initial encounter for open fracture type I or II; S32.019A Unspecified fracture of first lumbar vertebra, initial encounter for closed fracture; D62 Acute posthemorrhagic anemia; E87.20 Acidosis, unspecified; I42.8 Other cardiomyopathies; E87.0 Hyperosmolality and hypernatremia; T79.6XXA Traumatic ischemia of muscle, initial encounter; S82.452B Displaced comminuted fracture of shaft of left fibula, initial encounter for open fracture type I or II; E83.52 Hypercalcemia; E11.65 Type 2 diabetes mellitus with hyperglycemia; S71.101A Unspecified open wound, right thigh, initial encounter; F10.129 Alcohol abuse with intoxication, unspecified; E66.01 Morbid (severe) obesity due to excess calories; R40.2412 Glasgow coma scale score 13-15, at arrival to emergency department; E83.51 Hypocalcemia; S31.119A Laceration without foreign body of abdominal wall, unspecified quadrant without penetration into peritoneal cavity, initial encounter; E03.9 Hypothyroidism, unspecified; E83.42 Hypomagnesemia; E83.39 Other disorders of phosphorus metabolism; Y90.8 Blood alcohol level of 240 mg/100 ml or more; H05.231 Hemorrhage of right orbit; R07.89 Other chest pain; Z95.810 Presence of automatic (implantable) cardiac defibrillator; Z86.74 Personal history of sudden cardiac arrest; Z68.33 Body mass index [BMI] 33.0-33.9, adult; V49.40XA Driver injured in collision with unspecified motor vehicles in traffic accident, initial encounter; Y92.410 Unspecified street and highway as the place of occurrence of the external cause; Z82.49 Family history of ischemic heart disease and other diseases of the circulatory system; Z79.899 Other long term (current) drug therapy; Z79.82 Long term (current) use of aspirin
CPT/HCPCS: 27550; 27840; 36415; 36416; 36430; 70450; 70486; 71045; 71260; 72125; 72170; 74177; 75635; 80048; 80053; 80076; 80162; 80306; 80307; 81001; 81003; 81015; 82533; 82550; 82805; 83605; 83690; 83735; 83880; 84100; 84484; 85025; 85027; 85384; 85610; 85730; 86850; 86900; 86901; 87811; 88307; 90471; 90715; 93005; 93010; 94002; 94640; 94760; 96374; 96375; 97139; G0390; J1100; J1160; J1644; J1650; J1720; J1940; J2250; J2270; J2274; J2405; J2704; J2720; J3010; J3370; J3475; J3490; J7030; J7050; J7168; J7620; L0639; P9012; P9016; P9035; P9045; P9048; P9059; Q9967; S0028; U0003; U0005

== ENCOUNTER 2022-04-18 12:12 | Outpatient (CLI) | payer BC | END 2022-04-18 12:13 | disposition home or self-care (01) | LOC: SCSRAD 12:12 | PROVIDERS: ATTEND Neurological Surgery | DX: S32.019A Unspecified fracture of first lumbar vertebra, initial encounter for closed fracture (principal) | CPT/HCPCS: 72100 ==